=== PATIENT | female | born 2000 | race Caucasian/White ===

== ENCOUNTER 2025-04-20 20:07 | Emergency (ER) | payer OTHER ==
[~2025-04-20] VITALS: Ht 165.1 cm; Wt 109.1 kg
[2025-04-20 20:13] VITALS: BP 157/86; PULSE 97; RESP 17; O2SAT 97
--- NOTE | 2025-04-20 21:00 | RADIOLOGY REPORT ---
CLINICAL INDICATION: ANKLE PAIN LEFT TECHNIQUE: 3 radiographic views of the left ankle were obtained. Comparison: None FINDINGS/IMPRESSION: There is no evidence of acute fracture or dislocation. Small plantar calcaneal bony spur. The visualized joint space is well maintained. The alignment is anatomical. There is no radiopaque foreign body. [id number] lateral ankle soft tissue edema.
--- NOTE | 2025-04-20 21:31 | Physician Documentation ---
History of Present Illness ~ Chief Complaint: Ankle pain Stated Complaint: L KNEE PAIN/ FALL Time Seen by MD: 21:15 Source: patient Mode of Arrival: POV Exam Limitations: no limitations HPI 24-year-old with complaints of left ankle pain after fall. Patient concerned for fracture versus sprain patient lives in [place] traveling and hiking on their way home. Some weight-bearing Tetanus witin 5 years: Yes Medication Reconciliation Allergies: Coded Allergies: No Known Allergies (Unverified , 04/20/25) Past Medical History Past Medical History: No Pertinent History Review of Systems All Other Systems at this time: Reviewed and Negative Musculoskeletal: Reports: see HPI Physical Exam Vital Signs: RN Vital Signs have been reviewed: Yes, Heart Rate: 97, Respiratory Rate: 17, BP: 157/86, Pulse Oximetry: 97, Weight: 109.090 Oxygen Flow Rate: 0 Respiratory: no respiratory distress Chest: no accessory muscle use Ankles: limited ROM, pain, soft tissue tenderness, swelling; No: deformity Progress Results/Orders Results/Orders Vital Signs 04/20/25 20:13 Pulse 97 Resp 17 B/P (MAP) 157/86 Pulse Ox 97 O2 Flow Rate 0 Medical Decision Making Findings Twist and fall ankle sprain x-ray negative velcro splint in place and crutches patient will follow up with primary care in [place] Departure Time of Disposition: 21:29 Disposition: 01 HOME / SELF CARE / HOMELESS Impression: Primary Impression: Sprain of ankle Condition: Stable Discharge Instructions: Ankle Pain Additional Instructions: Take Tylenol or ibuprofen as needed for [id number]-og-[id number] pain use crutches as described and do some passive range of motion well velcro splint for a couple weeks and then attempt to use an Segun wrap. Rest ice compress and elevate follow up with primary care Referrals: NO PRIMARY CARE PROVIDER (PCP) Education Educated: Patient Educated regarding: diagnosis, treatment, need for follow up Signature Scribe Signature: No scribe Attestation: The note accurately reflects work and decisions made by me.Malinda PATRICIA 04/20/25 21:30 MALINDA GILBERT NP Apr 20, 2025 21:31
== END 2025-04-20 21:50 | disposition home or self-care (01) ==
LOC: ER 20:09
DX: S93.402A Sprain of unspecified ligament of left ankle, initial encounter (principal); W19.XXXA Unspecified fall, initial encounter; Y93.89 Activity, other specified; Y92.89 Other specified places as the place of occurrence of the external cause; Y99.8 Other external cause status
CPT/HCPCS: 29515; 73610; 99283; L1930